=== PATIENT | female | born 1955 | race Hispanic/Latino ===

== ENCOUNTER 2016-11-26 09:55 | Emergency (ER) | payer MEDICARE ==
[2016-11-26 10:13] VITALS: BP 158/96
== END 2016-11-26 10:10 | disposition left against medical advice (07) ==
LOC: ED 09:55
DX: R10.9 Unspecified abdominal pain (principal); Z53.21 Procedure and treatment not carried out due to patient leaving prior to being seen by health care provider

== ENCOUNTER 2016-12-10 13:34 | Emergency (ER) | payer MEDICARE ==
[2016-12-10 17:24] LABS: Basophils % (Auto) 0.7 % (0.0-1.8); Eosinophils % (Auto) 1.3 % (0.0-4.3); Hematocrit 43.5 % (30.3-42.9); Hemoglobin 14.7 gm/dl (10.1-14.3); Mean Corpuscular HGB Conc 34 % (30-34); Mean Corpuscular Hemoglobin 30 pg (28-32); Mean Corpuscular Volume 90 fl (79-97); Platelet Count 142 K/mm3 (140-440); Red Blood Count 4.85 M/mm3 (3.65-5.03); Red Cell Distribution Width 13.5 % (13.2-15.2); White Blood Count 6.6 K/mm3 (4.5-11.0)
[2016-12-10 17:41] LABS: Alanine Aminotransferase 135 units/L (7-56); Albumin 3.6 g/dL (3.9-5); Albumin/Globulin Ratio 0.8 %; Alkaline Phosphatase 161 units/L (35-129); Anion Gap 19 mmol/L; Bilirubin,Total 0.6 mg/dL (0.1-1.2); Blood Urea Nitrogen 14 mg/dL (7-17); Carbon Dioxide 27 mmol/L (22-30); Chloride 88.6 mmol/L (98-107); Glucose 115 mg/dL (65-100); Lipase 26 units/L (13-60); Potassium 3.8 mmol/L (3.6-5.0); Sodium 131 mmol/L (137-145); Total Protein 7.9 g/dL (6.3-8.2)
[2016-12-10 17:52] LABS: WBC,Urine < 1.0 /HPF (0.0-6.0)
[2016-12-10 17:58] LABS: Bacteria,Urine 1+ /HPF (Negative); Bilirubin,Urine NEG (Negative); Blood,Urine NEG (Negative); Ketones,Urine NEG (Negative); Leukocyte Esterase,Urine NEG (Negative); Nitrite,Urine NEG (Negative); Urobilinogen,Urine < 2.0 mg/dL (<2.0)
--- NOTE | 2016-12-10 22:29 | Emergency Department Report ---
ED Abdominal Pain HPI - General Chief Complaint: Abdominal Pain Stated Complaint: COPD/UPPER BODY PAIN Time Seen by Provider: 12/10/16 22:12 Source: patient Mode of arrival: Ambulatory Limitations: No Limitations - History of Present Illness Initial Comments: This is a 60-year-old female who is been experiencing right upper abdominal pain for the past month. She describes it as being fairly constant. She gets radiation to the right flank area as well. It is worse with deep breaths. She has occasional cough. But she attributes this to her COPD. She does have a history of hepatitis C. She reports she chronically has an elevated LFTs due to this. She denies any fever denies any trauma. This visit last week., She was told that she would get a CT scan but this has not been arranged yet. Denies any history of kidney stone denies dysuria. Patient was initially given some Percocet as well as Flexeril for the discomforts and had some modest improvement temporarily with this. MD Complaint: abdominal pain Onset/Timin -: Gradual, month(s) Location: RUQ Radiation: R flank Migration to: no migration Severity scale (0 -10): 7 Quality: aching Consistency: constant Improves With: other (worse lying down) Worsens With: movement Associated Symptoms: denies: nausea, vomiting, diarrhea, fever, chills, constipation, anorexia Treatments Prior to Arrival: prescription analgesics - Related Data Previous Rx's Medication Instructions Recorded Last Taken Type oxyCODONE /ACETAMINOPHEN [Percocet 1 tab PO Q6HR PRN #15 tablet 12/11/16 Unknown Rx 5/325] Allergies Allergy/AdvReac Type Severity Reaction Status Date / Time No Known Allergies Allergy Verified 12/10/16 14:23 ED Review of Systems ROS: Stated complaint: COPD/UPPER BODY PAIN Other details as noted in HPI Constitutional: denies: chills, fever Eyes: denies: eye pain, eye discharge, vision change ENT: denies: ear pain, throat pain Respiratory: denies: cough, shortness of breath, wheezing Cardiovascular: denies: chest pain, palpitations Endocrine: no symptoms reported Gastrointestinal: abdominal pain. denies: nausea, diarrhea Genitourinary: denies: urgency, dysuria, discharge Musculoskeletal: back pain. denies: joint swelling, arthralgia Skin: denies: rash, lesions Neurological: denies: headache, weakness, paresthesias Psychiatric: denies: anxiety, depression Hematological/Lymphatic: denies: easy bleeding, easy bruising ED Past Medical Hx - Medications Home Medications: Home Medications Medication Instructions Recorded Confirmed Last Taken Type oxyCODONE /ACETAMINOPHEN [Percocet 1 tab PO Q6HR PRN #15 tablet 12/11/16 Unknown Rx 5/325] ED Physical Exam - General Limitations: No Limitations General appearance: alert, in no apparent distress, obese - Head Head exam: Present: atraumatic, normocephalic - Eye Eye exam: Present: normal appearance - ENT ENT exam: Present: mucous membranes moist - Neck Neck exam: Present: normal inspection - Respiratory Respiratory exam: Present: normal lung sounds bilaterally. Absent: respiratory distress - Cardiovascular Cardiovascular Exam: Present: regular rate, normal rhythm. Absent: systolic murmur, diastolic murmur, rubs, gallop - GI/Abdominal GI/Abdominal exam: Present: soft, tenderness (right upper quadrant mild. No Delgado's. Rebound or guarding.), normal bowel sounds. Absent: organomegaly, mass, pulsatile mass - Extremities Exam Extremities exam: Present: pedal edema (1-2+ distal pedal pulses equal bilaterally. No calf tenderness.) - Back Exam Back exam: Present: CVA tenderness (R). Absent: vertebral tenderness - Neurological Exam Neurological exam: Present: alert, oriented X3 - Psychiatric Psychiatric exam: Present: normal affect, normal mood - Skin Skin exam: Present: warm, dry, intact, normal color. Absent: rash ED Course Vital Signs 12/10/16 14:24 Temperature 97.3 F L Pulse Rate 91 H Respiratory 18 Rate Blood Pressure 177/90 O2 Sat by Pulse 95 Oximetry - Reevaluation(s) Reevaluation #1: 12/11/16 00:12 Patient given pain medication here with good result. CAT scan accomplished. Results noted. Ocular studies are relatively unremarkable. She does have mild elevation of her LFTs. She does have history of cirrhosis. She does have evidence of fatty liver on CT study as well. The radiologist does not rule out the possibility for metastatic disease of the liver. I personally think this is unlikely as hepatomegaly as well as a cirrhosis can easily answer for the presentation on the labs as well as CT abdomen. 12/11/16 00:14 Abdomen is nonsurgical for me. I did give reassurance to this end. Patient also informed that she if she has worsening she should come back to the ED immediately. She does agree to follow up with her primary physician. ED Medical Decision Making - Lab Data Result diagrams: 12/10/16 16:56 12/10/16 16:56 - Radiology Data Radiology results: report reviewed, image reviewed There is hepatomegaly. Cirrhosis is suspected. There is diffuse nodularity of the liver. The differential included nodular regenerative hyperplasia as well as let metastatic disease change. Further differentiation of the liver may include ultrasound, MRI and possible tissue diagnosis. Critical care attestation.: If time is entered above; I have spent that time in minutes in the direct care of this critically ill patient, excluding procedure time. ED Disposition Clinical Impression: Hepatomegaly Abdominal pain Qualifiers: Abdominal location: right upper quadrant Qualified Code(s): R10.11 - Right upper quadrant pain Disposition: DISCHARGED TO HOME OR SELFCARE Is pt being admited?: No Does the pt Need Aspirin: No Condition: Stable Instructions: Abdominal Pain (ED) Prescriptions: oxyCODONE /ACETAMINOPHEN [Percocet 5/325] 1 tab PO Q6HR PRN #15 tablet PRN Reason: Pain Referrals: YASIR GUZMAN MD [Primary Care Provider] - 3-5 Days Time of Disposition: 00:11
[2016-12-10] MEDS ORDERED: NACL ONE (22:42)
--- NOTE | 2016-12-10 23:52 | Cat Scan Report ---
FINAL REPORT PROCEDURE: CT ABDOMEN PELVIS W CON TECHNIQUE: Computerized axial tomography of the abdomen and pelvis was performed after the IV injection of iodinated nonionic contrast. HISTORY: R sided abd pains x 1 month COMPARISON: No prior studies are available for comparison. FINDINGS: Visualized lower thorax: Mild chronic obstructive changes are identified in both lower lungs.. Liver: The liver is enlarged. There are multiple contrast-enhancing nodular densities identified throughout the liver the largest in the upper right lobe of the liver measures 6 centimeters. The differential includes nodular regenerative hyperplasia as well as metastatic change... Spleen: Normal size and attenuation. Gallbladder and biliary system: Normal. Pancreas: Normal. Adrenals: There is a 1.5 centimeter area of hypoattenuation off the superior left adrenal gland, adenoma is suspected. The right adrenal gland is normal.. Kidneys: Both kidneys have normal size. No hydronephrosis is seen. No renal stones. There is a 5 centimeter cyst off the inferior aspect of the left renal cortex.. GI tract: The stomach is normal. A small hiatal hernia is identified. The small bowel has a normal caliber. No obstruction, ileus or enteritis. The cecum, appendix and colon are normal.. Lymph nodes and mesentery: There are few nonspecific lymph nodes within the mesentery, adenopathy is not identified.. Vasculature: Moderate atherosclerosis of the aorta and branching vessels. Bladder: Normal. Reproductive organs: There are a few calcifications within the uterus, fibroid formation is suspected.. Peritoneum: No free fluid. Musculoskeletal structures: Mild degenerative changes of the thoracic and lumbar spine.. Other: None. IMPRESSION: There is hepatomegaly. Cirrhosis is suspected. There is diffuse nodularity of the liver. The differential will include nodular regenerative hyperplasia as well as metastatic change. Further differentiation of the liver may include ultrasound, MRI and possible tissue diagnosis. There is no evidence of intestinal or urinary tract obstruction. No ileus or enteritis. There is a 1.5 centimeter suspected adenoma off the superior left adrenal gland.
[2016-12-11] MEDS: DILAUDID IV ONE (00:45)
[2016-12-11] MEDS: NACL 0.9% 1000 ML 1,000 ML IV ONE (00:47)
[2016-12-11 01:07] VITALS: BP 133/66
== END 2016-12-11 02:14 | disposition home or self-care (01) ==
LOC: ED 13:34
DX: R16.0 Hepatomegaly, not elsewhere classified (principal); R10.11 Right upper quadrant pain; R05 Cough
CPT/HCPCS: 36415; 74177; 80053; 81001; 83690; 85025; 96361; 96374; 99284; J1170; J7030; Q9967